=== PATIENT | male | born 1980 | race Caucasian/White ===

== ENCOUNTER → 2020-05-12 15:54 | Outpatient (CLI) | payer BC, SELFPAY ==
[2020-05-12] MEDS: COVID-19 VACC #1, MRNA(MOD) 100 MCG/0.5 ML VIAL IM (16:03)
== END ==
PROVIDERS: Visit Provider Internal Medicine
DX: Z23 Encounter for immunization (principal)
CPT/HCPCS: 0011A; 91301

== ENCOUNTER → 2020-06-09 15:50 | Outpatient (CLI) | payer BC, SELFPAY ==
[2020-06-09] MEDS: COVID-19 VACC #2, MRNA(MOD) 100 MCG/0.5 ML VIAL IM (15:56)
== END ==
PROVIDERS: Visit Provider Internal Medicine
DX: Z23 Encounter for immunization (principal)
CPT/HCPCS: 0012A; 91301